=== PATIENT | male | born 1945 | race Caucasian/White ===

== ENCOUNTER 2023-12-17 07:06 | Day surgery (SDC) | payer MEDICARE, BC, SELFPAY ==
[2023-12-06 11:16] VITALS: BMI 35.5
[2023-12-17] VITALS (12 sets, daily range): BP systolic 100–135; BP diastolic 78–108; BMI 34.2
[2023-12-17] MEDS: DILAUDID 0.25 MG IV (12:45)
--- NOTE | 2023-12-17 13:26 | ITS.CL.ABL ---
Camp Assistant - Ablation
Ablation
Procedure Report:
ELECTROPHYSIOLOGY ABLATION PROCEDURE
Date of Procedure: December 17, 2023
Referring: Dr Erik De La Fuente
INDICATION: Symptomatic SVT, atrial flutter
HISTORY: Symptomatic recurrent atrial flutter requiring cardioversion. Previously presented in Aug 2022 but was non inducible so an empiric CTI ablation line was performed.
PROCEDURE:
Transesophageal echocardiogram performed earlier this morning demonstrates no left atrial appendage thrombus.
Ultrasound Guidance performed by md was utilized for femoral venous Vascular Access b/l. Vascular US demonstrated the typical vascular anatomy.
A decapolar catheter was positioned within the CS for mapping and recording of both RA and LA electrograms.
A mapping and ablation catheter was positioned.� His Bundle activation was recorded.� RV recording and pacing was also performed.
Today he presents in atrial flutter cycle length of 230 ms.
Activation at the coronary sinus catheter is proximal to distal. Entrainment from the proximal coronary sinus finds post pacing interval minus tachycardia cycle length of 35 ms while entrainment from the distal coronary sinus poles find long post
pacing intervals. Furthermore the FITiST multipolar grid mapping catheter created a high density electroanatomical voltage and activation map with activation mapping in the right atrium consistent with counterclockwise right atrial flutter with a
gap in the previously placed ablation line noted towards the tricuspid annulus. An RF 4 mm tip irrigated contact sensing catheter was then positioned to the area of gap and with RF energy the tachycardia immediately slowed and terminated.
Additional RF application was delivered along the line to ensure full electrical block. Mapping then demonstrated bidirectional block across the line as evidenced by differential pacing (conduction time medial to lateral as well as lateral to
medial is 180 ms) additionally there are widely spaced double potentials across the entirety of the line. After a 20-minute waiting period bidirectional block was maintained. Programmed electrical stimulation could induce no further arrhythmias.
COMPLICATIONS: None
SUMMARY:�
Mapping and ablation of SVT
EP study with programmed electrical stimulation with coronary sinus catheter
Three-dimensional electroanatomic mapping
RECOMMENDATIONS:
Maintain oral anticoagulation and consideration for discharge to home later today.
-Of note, he had self reduced his Eliquis dosing from 5 mg twice daily to 2.5 mg twice daily due to recurrent hemorrhoidal bleeding. Hemorrhoidal bleeding has been recurrent despite prior surgery several years ago.
-I explained to the patient, his and his daughter that he needs to be back on 5 mg twice daily for at least the next month post conversion of atrial flutter to sinus rhythm with ablation. They understand and agree.
Copy to: Dr Erik De La Fuente
== END 2023-12-17 17:30 | disposition home or self-care (01) ==
LOC: CATH 07:06
PROVIDERS: ATTENDING PHYSICIAN Internal Medicine Cardiovascular Disease; FAMILY PHYSICIAN Family Medicine; OTHER PHYSICIAN Internal Medicine Cardiovascular Disease
DX: I48.92 Unspecified atrial flutter (principal); I34.81 Nonrheumatic mitral (valve) annulus calcification; I34.0 Nonrheumatic mitral (valve) insufficiency
CPT/HCPCS: 93312; 93320; 93325; C1732; C1766; C1893; C1894; C1769; C1730; C2630; C1892; C1759; 76937; 93005; 93653

== ENCOUNTER 2024-04-17 08:35 | Day surgery (SDC) | payer MEDICARE, BC, SELFPAY ==
[2024-04-11 11:16] VITALS: BMI 35.4
[2024-04-17] VITALS (11 sets, daily range): BP systolic 114–146; BP diastolic 66–79; BMI 35.6
[2024-04-17 11:21] LABS: ACT-LR - POC 294 Seconds (116-155)
[2024-04-17 11:43] LABS: ACT-LR - POC 380 Seconds (116-155)
[2024-04-17 12:04] LABS: ACT-LR - POC 308 Seconds (116-155)
[2024-04-17 12:26] LABS: ACT-LR - POC 310 Seconds (116-155)
--- NOTE | 2024-04-17 12:54 | ITS.CL.ABL ---
Client Engagement Specialist - Ablation
Ablation
Procedure Report:
ELECTROPHYSIOLOGIC STUDY AND POSSIBLE ABLATION
DATE: 04/17/24
Primary Care Provider: Dr. Samson Morton
Primary Corn Shredder: Dr Erik De La Fuente
INDICATION:
Symptomatic Atrial Fibrillation.
Paroxysmal
HISTORY: See H and P.
Symptomatic AF, poorly controlled with attempted medical therapy
He initially underwent EP study and ablation August 23, 2022 targeting likely right atrial flutter but was not inducible and an empiric CTI flutter line was performed.
He recurred with symptomatic atrial flutter and then underwent mapping and ablation on December 17, 2023 finding typical counterclockwise atrial flutter which was successfully ablated.
He was admitted to [facility] earlier this month (March 31, 2024) with symptomatic atrial fibrillation And underwent transesophageal echo followed by successful cardioversion restoring sinus rhythm.
Transesophageal is noted to demonstrate moderate/moderate to severe mitral regurgitation with prolapse of the P2 segment of the mitral valve.� �During this hospital stay he was initiated on dronederone.
He presents now for mapping and ablation targeting atrial fibrillation.
HAS-BLED: 2
Age
H/O Bleeding (significant hemorrhoidal bleeding)
CHADSVASc: 3
HTN
Age
PRESENTING RHYTHM: SR
HISTORY: See H and P.
Symptomatic AF, poorly controlled with attempted medical therapy.
ANTIARRHYTHMIC DRUG: Multaq
ANTICOAGULATION: Apixaban
'TIME-OUT': called and confirmed.
SEDATION/ANESTHESIA: provided via the anesthesia department using general anesthesia.
PROCEDURE:
Ultrasound Guidance performed by nh was utilized for femoral venous Vascular Access b/l.
A decapolar CS catheter was placed within the CS for mapping and pacing.
The intracardiac ultrasound catheter was positioned in the RA for continuous intracardiac ultrasound imaging.
Heparin bolus and infusion to target ACT at 300 -350 seconds was administered. Transseptal puncture was performed. This entailed advancing a sheath with dilator into the superior vena cava and withdrawing both (monitoring intracardiac ultrasound,
fluoroscopy and tip pressure) with the tip oriented toward the atrial septum. The fossa ovalis was engaged (indicated by sudden displacement of the sheath tip as well as tenting of the fossa seen on intracardiac ultrasound).
AcQCross transseptal system was used. Left atrial catheter position was confirmed by echocardiographic imaging, pressure monitoring (LA mean pressure [ ] mm Hg) and fluoroscopy. The sheath was advanced over the dilator and positioned in the left
atrium.
The multipolar mapping catheter was initially positioned through the transseptal sheath for high density mapping.
Geometry and voltage mapping was performed using the Cinemagram multipolar grid catheter. Navex was utilized for three-dimensional electroanatomical mapping.
A 3-D map was created using Navex. A 3-D reconstructed CT image was compared to the 3-D Navex map to assist in anatomic evaluation, mapping and ablation.
The [employer] Pulse Select PFA catheter and system was used for cardiac ablation. Catheter positioning was guided and confirmed using both I.C.E. and fluoroscopy.
PV isolation approach was used to electrically isolate each PV ostia. After ostial isolation and during catheter manipulation there is short burst of atrial tachycardia, left sided. In addition there is areas of fractionation along the posterior
wall. Therefore additional ablation lesion set was undertaken to isolate the posterior wall of the left atrium.
At the end of the procedure remapping demonstrates both wide area circumferential ablation around the left superior, left inferior, right superior, right inferior pulmonary veins as well as electrical isolation of the posterior wall of the left
atrium. Programmed electrical stimulation is unable to induce any sustained arrhythmias at the end of ablation.
I.C.E. :
Pre-Ablation Post-Ablation
LVEF: 55 % 55 %
WMA: none none
Pericardial effusion: none none
COMPLICATIONS:
None
SUMMARY:
- Mapping and ablation to isolate the PVs
- Additional AF ablation set after PVI.
- 3-D Electroanatomical Mapping
- Intracardiac Ultrasound
Post ablation, I discussed today's findings and results with the patient's , Belkis.
RECOMMENDATIONS:
- Observe in monitored bed.
- Maintain oral anticoagulation.
- Discontinue Multaq
- Office visit with me in 3 months.
- Continue cardiovascular care with Dr De La Fuente
Copy to: Dr Erik De La Fuente
--- NOTE | 2024-04-17 17:02 | W.PN.UPDATE ---
Update Note
Progress Note Update
78 yo WM s/p PVI (same day). He feels good, no cp, sob, ranjana diet, voiding, b/l groins c/d/i no HT, soft, EKG SB/SR. He will continue OAC Eliquis dose at 7pm at home. He will continue metoprolol. Activity restrictions reviewed. He will f/u Dr. De La Fuente
in 1 mo. He is for d/c home after 530p if groins stable.
SUMMARY:
- Mapping and ablation to isolate the PVs
- Additional AF ablation set after PVI.
- 3-D Electroanatomical Mapping
- Intracardiac Ultrasound
Post ablation, I discussed today's findings and results with the patient's , Belkis.
RECOMMENDATIONS:
- Observe in monitored bed.
- Maintain oral anticoagulation.
- Discontinue Multaq
- Office visit with me in 3 months.
- Continue cardiovascular care with Dr De La Fuente
[2024-04-17] MEDS: ANESTHETIC LOZENGE 1 LOZENGE PO (17:23)
== END 2024-04-17 17:39 | disposition home or self-care (01) ==
LOC: CATH 08:35
PROVIDERS: ATTENDING PHYSICIAN Internal Medicine Cardiovascular Disease; FAMILY PHYSICIAN Family Medicine; OTHER PHYSICIAN Internal Medicine Cardiovascular Disease
DX: I48.91 Unspecified atrial fibrillation (principal); I10 Essential (primary) hypertension; Z79.82 Long term (current) use of aspirin; Z79.899 Other long term (current) drug therapy; Z79.84 Long term (current) use of oral hypoglycemic drugs; I34.0 Nonrheumatic mitral (valve) insufficiency; I48.3 Typical atrial flutter; I44.4 Left anterior fascicular block; J98.4 Other disorders of lung; Z87.19 Personal history of other diseases of the digestive system
CPT/HCPCS: C1732; C1894; C1733; C1730; C1892; 76937; 85347; 93005; 93656; 93657

== ENCOUNTER → 2025-09-15 11:00 | Outpatient (REF) | payer BC, MEDICARE, SELFPAY ==
[2025-09-15 11:36] LABS: Hematocrit 50.3 % (39.0-52.0); Hemoglobin 16.5 g/dL (13.0-18.0); Mean Corp Hgb Conc. 32.8 g/dL (33.0-37.0); Mean Corpuscular Volume 86.0 fL (80.0-94.0); Nucleated Red Blood Cells % 0 % (-); Platelet Count 192 10^3/uL (130-400); Red Cell Dist. Width 15.1 % (11.5-14.5)
[2025-09-15 11:47] LABS: ALT (SGPT) 42 U/L (0-50); AST (SGOT) 27 U/L (17-59); Albumin 4.6 g/dl (3.5-5.0); Alkaline Phosphatase 79 U/L (38-126); Blood Urea Nitrogen 23 mg/dl (9-20); Calcium 9.8 mg/dl (8.4-10.2); Carbon Dioxide 29 mmol/L (22-30); Chloride 105 mmol/L (98-107); Glucose 97 mg/dl (70-99); INR 1.23; Magnesium 2.2 mg/dl (1.6-2.3); PT 15.8 Sec (11.4-14.6); Potassium 4.4 mmol/L (3.5-5.1); Sodium 139 mmol/L (135-145); Total Protein 7.4 g/dl (6.3-8.2); eGFR > 60.00
== END ==
LOC: SDSPAT 11:00
PROVIDERS: ATTENDING PHYSICIAN Internal Medicine Cardiovascular Disease; FAMILY PHYSICIAN Family Medicine; OTHER PHYSICIAN Internal Medicine Cardiovascular Disease
DX: I48.91 Unspecified atrial fibrillation (principal)
CPT/HCPCS: 36415; 80053; 83735; 85025; 85610; 86850; 86900; 86901; 87070; 93005

== ENCOUNTER 2025-09-21 05:53 | Inpatient (IN) | payer MEDICARE, BC, SELFPAY ==
[2025-09-15 11:13] VITALS: BMI 38.6
[2025-09-21] VITALS (26 sets, daily range): BP systolic 114–150; BP diastolic 64–92; BMI 37.6
--- NOTE | 2025-09-21 07:41 | ITS.CL.ABL ---
Morgue Technician - Ablation
Ablation
Procedure Report:
ELECTROPHYSIOLOGIC STUDY AND POSSIBLE ABLATION
DATE: 09/21/25
Primary Care Provider: Dr. Samson Morton
Primary Scientific Advisor: Dr Erik De La Fuente
INDICATION:
Symptomatic Atrial Fibrillation.
Paroxysmal
HISTORY: See H and P.
Symptomatic AF, poorly controlled with attempted medical therapy
He initially underwent EP study and ablation August 23, 2022 targeting likely right atrial flutter but was not inducible and an empiric CTI flutter line was performed.
He recurred with symptomatic atrial flutter and then underwent mapping and ablation on December 17, 2023 finding typical counterclockwise atrial flutter which was successfully ablated.
He was then admitted to [facility] March 31, 2024 with symptomatic atrial fibrillation and underwent transesophageal echo followed by successful cardioversion restoring sinus rhythm.
Transesophageal is noted to demonstrate moderate/moderate to severe mitral regurgitation with prolapse of the P2 segment of the mitral valve.� �During this hospital stay he was initiated on dronederone.
He then underwent mapping and ablation for atrial fibrillation on April 17, 2024 using pulsed electric field energy ([employer] Pulse Select).
He has had recurrent symptomatic atrial fibrillation. Management has been complicated by significant GI bleeding, recurrent requiring discontinuation of oral anticoagulation.
He therefore has been referred for both repeat mapping and ablation for symptomatic paroxysmal atrial fibrillation as well as placement of Watchman left atrial appendage occlusion device to reduce his long-term exposure to oral anticoagulation.
He was reinitiated on oral anticoagulation 1 month ago in preparation for today's procedure.
[id number]: 5 (HTN, age, CVA - visual change small vessel dz)
HASBLED 4 (CVA/TIA, prior bleeding, Age > 75, medication use predispose to bleed)
PRESENTING RHYTHM: SR
HISTORY: See H and P.
Symptomatic AF, poorly controlled with attempted medical therapy.
ANTICOAGULATION: Apixaban 5 mg twice daily
'TIME-OUT': called and confirmed.
SEDATION/ANESTHESIA: provided via the anesthesia department using general anesthesia.
PROCEDURE:
Ultrasound Guidance with real-time visualization of needle insertion and vessel patency performed by ms for femoral venous Vascular Access.
Under real-time US guidance, the needle was advanced with negative pressure into the vein. The needle was seen entering the vessel lumen with a good return of dark red flow, the syringe was removed, non-pulsatile, dark red blood low was noted and
the wire was passed without difficulty, then the needle was removed. US confirmed the wire was in the vein, not going into an artery,
Images were taken and saved for the patient's permanent record. Imaging findings typical femoral venous anatomy. Direct visualization of needle puncture into the femoral vein was observed and recorded.
A decapolar CS catheter was placed within the CS for mapping and pacing.
The intracardiac ultrasound catheter was positioned in the RA for continuous intracardiac ultrasound imaging.
Heparin bolus and infusion to target ACT at 300 -350 seconds was administered. Transseptal puncture was performed. This entailed advancing a sheath with dilator into the superior vena cava and withdrawing both (monitoring intracardiac ultrasound,
fluoroscopy and tip pressure) with the tip oriented toward the atrial septum. The fossa ovalis was engaged (indicated by sudden displacement of the sheath tip as well as tenting of the fossa seen on intracardiac ultrasound).
Transseptal puncture was performed. Left atrial catheter position was confirmed by echocardiographic imaging, pressure monitoring (LA mean pressure [ ] mm Hg) and fluoroscopy. The sheath was advanced over the dilator and positioned in the left
atrium.
The Sphere 9 multipolar mapping/ablation Sphere-9 catheter was positioned through the transseptal sheath for high density mapping.
Geometry and voltage mapping was performed using the [employer] mapping system for three-dimensional electroanatomical mapping.
Catheter positioning was guided and confirmed using both I.C.E. and fluoroscopy.
High density electroanatomical three-dimensional mapping demonstrated four PVs: LSPV, LIPV, RSPV, RIPV.
Ablation strategy included PVI as well as mapping for extra PV contributors to atrial fibrillation which would also be targeted if present.
There is reconnection at the right inferior pulmonary vein along its posterior as well as the inferior quadrants
Post electric field energy was delivered via the sphere 9 catheter to electrically isolate the right inferior pulmonary vein
After accomplishing pulmonary venous isolation, mapping identified additional areas likely to be extra PV contributors to atrial fibrillation. These areas demonstrated patchy low voltage as well as complex fractionated electrograms. These areas can
be sites for the formation of rotors which can drive and maintain atrial fibrillation. These areas are known to be significant contributors to initiation and perpetuation of atrial fibrillation.
Additional energy applications/additional ablation sets targeted extra PV contributors to atrial fibrillation.
Targets for additional PFA ablation included:
LA posterior wall targeted with pulsed electric field energy isolating the posterior wall of the left atrium.
This area was ablated using pulsed electric field energy eliminating the extra PV contributors to atrial fibrillation.
Mapping once ablation is completed find electrical isolation of all 4 pulmonary veins as well as electrical isolation of the posterior wall defined by both entrance and exit block.
Programmed electrostimulation including burst atrial pacing as well the delivery of decremental extrastimuli down to atrial effective refractory period and no sustained arrhythmias could be induced.
I.C.E. :
Pre-Ablation Post-Ablation
LVEF: 55 % 55 %
WMA: none none
Pericardial effusion: none none
LA Pressure (mmHg) 12 23
COMPLICATIONS:
none
SUMMARY:
- Mapping and ablation to isolate the PVs resulting in electrical isolation of the pulmonary veins
- Additional AF ablation sets X 1 after PVI (LA posterior wall) resulting in elimination of the targeted extra PV contributors to atrial fibrillation.
- 3-D Electroanatomical Mapping
- Intracardiac Ultrasound
- Ultrasound guidance for vascular access
Post ablation, I discussed today's findings and results with the patient's , Belkis.
RECOMMENDATIONS:
- Observe in monitored bed.
- Maintain oral anticoagulation.
- Proceed with left atrial appendage occlusion
- Office visit with KIRILL Ly will be arranged prior to his planned for approximate 2 to 3 months from today
- Continue cardiovascular care with Dr Erik De La Fuente.
Copy to:
Primary Care Provider: Dr. Samson Morton
Primary Scientific Advisor: Dr Erik De La Fuente
--- NOTE | 2025-09-21 07:48 | WATCHMAN.MD ---
Watchman Implant
-
WATCHMAN LEFT ATRIAL APPENDAGE CLOSURE DEVICE REPORT
DATE: 09/21/25
Primary Care Provider: Dr. Samson Morton
Primary Director Of Nuclear Medicine: Dr Erik De La Fuente
INDICATION:
He has had recurrent symptomatic atrial fibrillation.
Recurrent severe GI bleeding impeding continuing use of oral anticoagulation.
Management has been complicated by significant GI bleeding, recurrent requiring interruptions of oral anticoagulation.
[id number]: 5 (HTN, age, CVA - visual change small vessel dz)
HASBLED 4 (CVA/TIA, prior bleeding, Age > 75, medication use predispose to bleed)
He was reinitiated on oral anticoagulation 1 month ago in preparation for today's procedure.
Watchman Team:
MANUELA: Dr Alfonso No M.D.
Transseptal copy machine operator: Ezequiel Mcmillan M.D.
Implanter: Ezequiel Mcmillan M.D.
Procedure: Watchman left atrial appendage closure.
The patient was placed under general anesthesia by anesthesia.
A MANUELA probe was placed.
A 10 Fr sheath was placed in the right femoral vein for ICE.
A 10 Swedish sheath was initially placed and then upsized to an 18 Fr short sheath to allow access for the 14 Swedish watchman sheath
Heparin was administered to goal ACT 350-400 seconds. Fluid bolus was given.
Intracardiac ultrasound had guided transseptal puncture to a mid mid septal location to optimize trajectory of watchman delivery.
A 5 Swedish curved pigtail was positioned through the watchman sheath to the ostium of the left atrial appendage. The 5 Swedish pigtail was advanced into the left atrial appendage and angiography was performed. This allowed additional measurements
assessing left atrial appendage ostium size and SANTIAGO morphology.
The pigtail catheter was removed from the access sheath. A 40 mm Watchman device was flushed and then placed into the watchman access sheath and advanced through the sheath. The Watchman was clamped into the sheath. The device was deployed into
the left atrial appendage.
The PASS criteria were met. The stability tug test was performed and passed. Transesophageal echocardiogram revealed no leaks nor jets. There is a 'gutter' between the device and the limbus but no leak. Compression ranges from 22 % to 30 %.
After meeting the PASS release criteria the device was released into the left atrial appendage.
The watchman access sheath was then removed through the transseptal into the IVC. A figure 8 suture closure was performed at the site of the femoral venous puncture and the sheath as it was removed.
Impression:
- Successful Deployment 40 mm WATCHMAN left atrial appendage closure device.
Recent data from the NCDR [facility] registry demonstrated the discharge on DOAC alone or with warfarin alone without aspirin was associated with a significantly lower bleeding risk without differences in stroke . The addition of aspirin to oral
anticoagulation increased bleeding risk.
Recommended anticoagulation strategy for this specific patient is to attempt to maintain Eliquis 5 mg twice daily until 90-day transesophageal echocardiogram.
Transesophageal echocardiogram at 3 months post procedure will be used to assess for any device related thrombus, assess for any leaks, and aid in the decision making regarding altering anticoagulation/antiplatelet recommendations.
At post procedure MANUELA leaks > 5mm are significant and require chronic full anticoagulation or consideration for leak closure.
Maria R-device leaks between 3 and 5 mm may also carry an increased risk. These patients will need individualized risk assessment and discussion with Watchman team.
Leaks < 3 mm are generally considered low risk for future embolic events.
With leak of any size suggestion is to check MANUELA 12 mo out from implant.
While the overall risk of device related infection for Watchman device is very low, we recommend SBE prophylaxis with amoxicillin for the first 6 months after device implantation until the device is more completely endothelialized. After the first
6 months, the risk of infection associated with a device is further reduced and routine antibiotic prophylaxis is not mandatory but can be decided on an individual case basis.
We will arrange outpatient visit with KIRILL Ly within the next 2 to 3 months, just prior to planned 90-day MANUELA
Continue cardiovascular care with Dr. Erik De La Fuente
cc:
Primary Care Provider: Dr. Samson Morton
Primary Director Of Nuclear Medicine: Dr Erik De La Fuente
[2025-09-21 08:59] LABS: ACT-LR - POC 377 Seconds (116-155)
[2025-09-21 09:17] LABS: ACT-LR - POC 340 Seconds (116-155)
[2025-09-21 10:06] LABS: ACT-LR - POC 334 Seconds (116-155)
--- NOTE | 2025-09-21 17:06 | W.DS.TRANS ---
DC Summary - Able Seaman
-
Discharge Instructions:
Discharge Diagnosis/Procedures AFib, s/p ablation and watchman device implant
Diet Low Cholesterol
Driving Restrictions No driving for 24 hours
Instructions: Atrial fibrillation
Catheter ablation for the heart
Heart-healthy diet
Left atrial appendage closure
Stand-Alone Forms: DC Instructions- Cath/EP Lab
Changes to Home Medications: No
Discharge Medications:
DC Medications w/original date entered in [facility]
biotin 5 mg tablet 5 mg PO DAILY 08/11/22
coenzyme Q10 100 mg capsule (Co Q-10) 100 mg PO DAILY 08/11/22
metoprolol succinate 25 mg tablet,extended release 24 hr (Toprol XL) 25 mg PO BID 08/11/22
multivitamin 1 tab PO DAILY 08/11/22
red yeast rice 600 mg capsule 600 mg PO DAILY 08/11/22
amlodipine 5 mg tablet (Norvasc) 5 mg PO QPM 12/04/23
apixaban 5 mg tablet (Eliquis) 5 mg PO BID #60 tabs 04/17/24
Prevagen 1 cap PO DAILY 09/11/25
Veinsense 2 cap PO DAILY Supplement 09/11/25
glucosamine-chondroitin 250 mg-200 mg tablet 2 tab PO DAILY 09/11/25
wpzhnqwn-zxffen-kbzbd extract 5 mg-6 mg-150 mg capsule (Fruit and Vegetable Daily) 6 cap PO DAILY 09/11/25
Cbd Ointment 1 dose topical DAILYPRN PRN pain 09/21/25
Saw [place] With Pygeum 2 cap PO DAILY 09/21/25
ascorbic acid (vitamin C) 500 mg capsule,extended release 500 mg PO DAILY 09/21/25
celecoxib 200 mg capsule (Celebrex) 200 mg PO DAILY 09/21/25
omega-3 fatty acids-fish oil 684 mg-1,200 mg capsule,delayed release 1 cap PO BID 09/21/25
Home Medication Changes
Pending Results: No
== END 2025-09-21 16:35 | disposition home or self-care (01) | DRG 274 ==
LOC: CATH-IN 05:53
PROVIDERS: Student in an Organized Health Care Education/Training Program; ADMITTING PHYSICIAN Internal Medicine Cardiovascular Disease; FAMILY PHYSICIAN Family Medicine
PROC: B24BZZ4 Ultrasonography of Heart with Aorta, Transesophageal (ICD-10-PCS; 2025-09-21)
PROC: 02L73DK Occlusion of Left Atrial Appendage with Intraluminal Device, Percutaneous Approach (ICD-10-PCS; 2025-09-21)
DX: I48.0 Paroxysmal atrial fibrillation (principal); K92.2 Gastrointestinal hemorrhage, unspecified; I48.3 Typical atrial flutter; Z87.891 Personal history of nicotine dependence; Z79.01 Long term (current) use of anticoagulants; D64.9 Anemia, unspecified; I10 Essential (primary) hypertension; I34.0 Nonrheumatic mitral (valve) insufficiency; M51.9 Unspecified thoracic, thoracolumbar and lumbosacral intervertebral disc disorder
CPT/HCPCS: 33340; 36415; 85347; 93005; 93355; 93656; 93657; C1730; C1732; C1733; C1766; C1769; C1894; Q9967